=== PATIENT | female | born 1990 | race Caucasian/White ===

== ENCOUNTER → 2019-08-21 | Outpatient (CLI) | payer OTHER ==
[2019-08-21 16:48] LABS: T4, Free (Free Thyroxine) 1.06 ng/dL (0.78-2.19)
[2019-08-21 23:26] LABS: Luteinizing Hormone 17.1 mIU/mL; Prolactin 9.9 ng/mL (2.8-29.2)
[2019-08-21 23:27] LABS: Estradiol 57.9 pg/mL; Follicle Stimulating Hormone 7.7 mIU/mL
[2019-08-22 00:48] LABS: DHEA Sulfate 87.7 ug/dL (26.0-430.0)
[2019-08-22 00:50] LABS: Progesterone <0.2 ng/mL
--- NOTE | 2019-08-22 08:48 | US ---
EXAMINATION TYPE: US pelvic complete DATE OF EXAM: 08/21/2019 COMPARISON: NONE CLINICAL HISTORY: N93.8 Other specified abnormal uterine and vaginal. infrequent cycles, since paticollin vasquez was a [age] she has had only a couple cycles per year. Has had labs done and tried control , G0 TECHNIQUE: TA. Transabdominal sonographic images of the pelvis were acquired. Date of LMP: July, unknown exact date EXAM MEASUREMENTS: Uterus: 7.6 x 3.9 x 4.7 cm Endometrial Stripe: 1.4 cm Right Ovary: 2.4 x 1.8 x 1.8 cm Left Ovary: 2.6 x 1.7 x 2.1 cm 1. Uterus: Anteverted wnl 2. Endometrium: wnl 3. Right Ovary: wnl 4. Left Ovary: wnl 5. Bilateral Adnexa: wnl 6. Posterior cul-de-sac: wnl Urinary bladder is sonolucent. Posterior wall is normal. IMPRESSION: 1. Endometrial canal measuring up to 1.4 cm. 2. Otherwise unremarkable pelvic ultrasound.
== END | disposition home or self-care (01) ==
LOC: RADUSWWP 14:59
PROVIDERS: ATTEND Obstetrics & Gynecology
DX: N93.8 Other specified abnormal uterine and vaginal bleeding (principal); Z13.29 Encounter for screening for other suspected endocrine disorder; N97.0 Female infertility associated with anovulation
CPT/HCPCS: 76856; 82627; 82670; 83001; 83002; 84144; 84146; 84403; 84439; 84443; 84481